=== PATIENT | female | born 1980 | race Caucasian/White ===

== ENCOUNTER 2017-05-19 21:59 | Emergency (ER) | payer OTHER, MEDICAID ==
[~2017-05-19] VITALS: Ht 154.9 cm; Wt 73.0 kg
[~2017-05-19 21:59] MED LIST: CLARITIN10 MG PO; HYDROCODON-ACE1 EAC7 PO; MEDROLDOSEPACK PO; PERCOCET 5-3251 EACH PO; PERCOCET PO; ROBAXIN500 MG PO
[2017-05-19] MEDS ORDERED: PRINIVIL20 MG PO (22:27)
[2017-05-19 22:48] LABS: URINE BILIRUBIN NEGATIVE (Negative); URINE BLOOD TRACE (Negative); URINE CLARITY CLEAR; URINE COLOR YELLOW; URINE GLUCOSE-RANDOM NEGATIVE (Negative); URINE KETONES NEGATIVE (Negative); URINE LEUKOCYTES-REFLEX NEGATIVE (Negative); URINE NITRITE-REFLEX NEGATIVE (Negative); URINE PROTEIN NEGATIVE (Negative); URINE UROBILINOGEN 0.2 E.U./dl (0.2-1.0)
[2017-05-19 22:50] LABS: ABSOLUTE BASOPHILS 0.1 thou/uL (0.0-0.2); ABSOLUTE EOSINOPHILS 0.3 thou/uL (0.0-0.7); ABSOLUTE LYMPHOCYTES 3.5 thou/uL (0.8-5.3); ABSOLUTE MONOCYTES 0.8 thou/uL (0.0-1.2); ABSOLUTE NEUTROPHILS 6.2 thou/uL (1.6-8.1); BASOPHILS 1.2 %; EOSINOPHILS 2.6 %; HEMATOCRIT 43.8 % (37.0-47.0); HEMOGLOBIN 14.8 gm/dL (12.0-15.0); LYMPHOCYTES 32.3 %; MCH 31.5 pg (26.0-34.0); MCHC 33.8 g/dL (28.0-37.0); MCV 93.1 fL (80.0-100.0); MONOCYTES 7.1 %; MPV 7.2 fl. (7.2-11.1); NUCLEATED RBCS 0 /100WBC; PLATELET COUNT* 347 thou/uL (150-400); POLYS 56.8 %; RDW-CV 13.5 % (10.5-14.5); WBC 10.8 thou/uL (4.0-11.0)
[2017-05-19 23:00] LABS: CREATININE 0.5 mg/dL (0.6-1.3); POTASSIUM 4.1 mmol/L (3.5-5.1)
[2017-05-19 23:04] LABS: ALBUMIN 3.8 g/dL (3.4-5.0); TOTAL BILIRUBIN 0.2 mg/dL (<0.1-1.0)
[2017-05-20] MEDS ORDERED: NORCO 5-325 TA1 EAC1 PO (00:05)
[2017-05-20] MEDS ORDERED: ZOFRAN4 MG PO (00:05)
[2017-05-20 00:27] VITALS: BP 130/74
== END 2017-05-20 00:29 | disposition home or self-care (01) ==
LOC: M.ERS 21:59
PROVIDERS: Nurse Practitioner
DX: N83.201 Unspecified ovarian cyst, right side (principal); F17.200 Nicotine dependence, unspecified, uncomplicated; Z90.49 Acquired absence of other specified parts of digestive tract; Z88.1 Allergy status to other antibiotic agents; Z88.6 Allergy status to analgesic agent; Z88.5 Allergy status to narcotic agent; Z91.041 Radiographic dye allergy status; Z88.8 Allergy status to other drugs, medicaments and biological substances

== ENCOUNTER 2020-05-03 18:21 | Emergency (ER) | payer OTHER, MEDICAID ==
[~2020-05-03] VITALS: Ht 154.9 cm; Wt 78.9 kg
[~2020-05-03 18:21] MED LIST changes: +NORCO 5-325 TA1 EAC1 PO; +PRINIVIL20 MG PO; +ZOFRAN4 MG PO
[2020-05-03 18:32] VITALS: BP 151/92
[2020-05-03 19:03] LABS: INFLUENZA A ANTIGEN Negative (Negative); INFLUENZA B ANTIGEN Negative (Negative)
== END 2020-05-03 20:21 | disposition home or self-care (01) ==
LOC: M.ERS 18:21
PROVIDERS: Nurse Practitioner Family
DX: J02.9 Acute pharyngitis, unspecified (principal); Z20.822 Contact with and (suspected) exposure to COVID-19; F17.210 Nicotine dependence, cigarettes, uncomplicated; Z90.49 Acquired absence of other specified parts of digestive tract; Z88.1 Allergy status to other antibiotic agents; Z88.6 Allergy status to analgesic agent; Z91.041 Radiographic dye allergy status; Z88.8 Allergy status to other drugs, medicaments and biological substances